=== PATIENT | male | born 2000 | race Hispanic/Latino ===

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

== ENCOUNTER 2021-06-29 13:55 | Emergency (ER) | payer SELFPAY ==
[2021-06-29 15:11] LABS: Absolute Lymphocytes (CBC) 3.7 K/uL (0.7-4.9); Basophils % 1.1 % (0-1.3); Hematocrit 48.6 % (39.6-49.0); Lymphocytes % 33.7 % (15.3-44.8); MPV 8.4 fL (7.6-11.3); RBC Red Blood Cell Count 5.75 M/uL (4.33-5.43)
--- NOTE | 2021-06-29 15:20 | RAD REPORT ---
EXAM DESCRIPTION: Marivel Single View06/29/2021 3:12 pm CLINICAL HISTORY: Chest pain COMPARISON: 2019 FINDINGS: The lungs appear clear of acute infiltrate. The heart is normal size IMPRESSION: No acute abnormalities displayed
[2021-06-29 15:35] LABS: BUN Blood Urea Nitrogen 13 mg/dL (7-18); Bicarbonate 25 mmol/L (21-32); Glucose Level 89 mg/dL (74-106); Sodium Level 137 mmol/L (136-145); Troponin (Emerg Dept Use Only) < 0.02 ng/mL (0.0-0.045)
[2021-06-29 15:36] LABS: Potassium 4.6 mmol/L (3.5-5.1)
--- NOTE | 2021-06-29 16:06 | EDPHYS ---
Physician Documentation [facility] Name: Anthony Alvarado Age: 21 yrs Sex: Male : 2000 Arrival Date: 06/29/2021 Time: 13:55 Bed Waiting Private MD: Azam Cerrato ED Physician Edwardo Hall HPI: 06/29 14:52 This 21 yrs old Male presents to ER via Ambulatory with complaints of Chest kb Pain. 14:52 The patient presents with pain that is acute, with no known mechanism of injury. The kb symptoms are located in the left subscapular area. Onset: The symptoms/episode began/occurred 2 day(s) ago. The pain does not radiate. Associated signs and symptoms: The patient has no apparent associated signs or symptoms. The problem was sustained without known cause. Modifying factors: The patient symptoms are alleviated by nothing, the patient symptoms are aggravated by movement. Severity of symptoms: At their worst the symptoms were moderate, in the emergency department the symptoms are unchanged. The patient has not experienced similar symptoms in the past. The patient has not recently seen a physician. Pt reports "pain where my heart is except in the back.". Historical: - Allergies: 14:31 No Known Allergies; hb - PMHx: 14:29 seizures 4 years ago; hb - Immunization history:: Client reports having NOT received the Covid vaccine. - Social history:: Smoking status: Patient denies any tobacco usage or history of. ROS: 14:51 Constitutional: Negative for fever, chills, and weight loss. kb 14:51 Back: Positive for pain at rest, pain with movement, of the left subscapular area. 14:51 All other systems are negative. Exam: 14:40 Constitutional: This is a well developed, well nourished patient who is awake, alert, kb and in no acute distress. Head/Face: Normocephalic, atraumatic. ENT: Moist Mucous membranes Cardiovascular: Regular rate and rhythm with a normal S1 and S2. No gallops, murmurs, or rubs. No pulse deficits. Respiratory: Respirations even and unlabored. No increased work of breathing, no retractions or nasal flaring. Skin: Warm, dry with normal turgor. Normal color. MS/ Extremity: Pulses equal, no cyanosis. Neurovascular intact. Full, normal range of motion. Neuro: Awake and alert, GCS 15, oriented to person, place, time, and situation. Moves all extremities. Normal gait. Psych: Awake, alert, with orientation to person, place and time. Behavior, mood, and affect are within normal limits. 14:40 ECG was reviewed by the Attending Physician. 14:51 Back: pain, that is mild, that is moderate, of the left subscapular area. kb Vital Signs: 14:29 BP 143 / 106; Pulse 99; Resp 20; Temp 97.3; Pulse Ox 100% on R/A; Weight 117.93 kg; hb Height 5 ft. 9 in. (175.26 cm); Pain 5/10; 14:29 Body Mass Index 38.39 (117.93 kg, 175.26 cm) hb MDM: 14:32 Patient medically screened. kb 14:51 Data reviewed: vital signs, nurses notes. Data interpreted: Pulse oximetry: on room air kb is 100 %. Interpretation: normal. 16:05 Counseling: I had a detailed discussion with the patient and/or guardian regarding: the kb historical points, exam findings, and any diagnostic results supporting the discharge/admit diagnosis, lab results, radiology results, the need for outpatient follow up, a family practitioner, to return to the emergency department if symptoms worsen or persist or if there are any questions or concerns that arise at home. 06/29 14:32 Order name: CBC with Diff hb 06/29 14:32 Order name: Basic Metabolic Panel; Complete Time: 15:40 hb 06/29 14:32 Order name: EKG - Nurse/Tech; Complete Time: 14:41 hb 06/29 14:32 Order name: Troponin (emerg Dept Use Only); Complete Time: 15:40 hb 06/29 14:32 Order name: Chest Single View XRAY; Complete Time: 15:25 hb 06/29 14:33 Order name: CBC with Automated Diff EDMS EC:40 Rate is 90 beats/min. Rhythm is regular. QRS [place] is Normal. HI interval is normal at kb 140 msec. QRS interval is normal at 94 msec. QT interval is normal at 334 msec. Administered Medications: No medications were administered Disposition: 06/30 07:45 Co-signature as Attending Physician, Edwardo Hall MD I agree with the assessment and vivienne plan of care. Disposition Summary: 06/29/21 16:05 Discharge Ordered Location: Home kb Condition: Stable kb Diagnosis - Left Upper back pain kb Followup: kb - With: Emergency Department - When: As needed - Reason: Worsening of condition Followup: kb - With: Private Physician - When: 2 - 3 days - Reason: Recheck today's complaints, Continuance of care, Re-evaluation by your physician Discharge Instructions: - Discharge Summary Sheet kb - Musculoskeletal Pain kb - Chest Wall Pain, [id number] kb Forms: - Medication Reconciliation Form kb - Thank You Letter kb - Antibiotic Education kb - Prescription Opioid Use kb Prescriptions: - Diclofenac Sodium 75 mg Oral tablet,delayed release (DR/EC) - take 1 tablet by ORAL route 2 times per day As needed; 30 tablet; Refills: 0, kb Product Selection Permitted Signatures: Dispatcher [employer] EDAdriana Arrieta, ABIGAIL-C SPRINKLING TRUCK DRIVER-Edwardo Doe MD MD cha Baxter, Heather, RN RN
--- NOTE | 2021-06-29 16:06 | ER ---
Nurse's Notes [facility] Name: Anthony Alvarado Age: 21 yrs Sex: Male : 2000 Arrival Date: 06/29/2021 Time: 13:55 Bed Waiting Private MD: Azam Cerrato Diagnosis: Left Upper back pain Presentation: 06/29 14:29 Chief complaint: Left mid back pain, worse with deep breathing x 2 days. Coronavirus hb screen: At this time, the client does not indicate any symptoms associated with coronavirus-19. Ebola Screen: No symptoms or risks identified at this time. Risk Assessment: Do you want to hurt yourself or someone else? Patient reports no desire to harm self or others. Onset of symptoms was June 28, 2021. 14:29 Method Of Arrival: Ambulatory hb 14:29 Acuity: ANIKA 3 hb Historical: - Allergies: 14:31 No Known Allergies; hb - PMHx: 14:29 seizures 4 years ago; hb - Immunization history:: Client reports having NOT received the Covid vaccine. - Social history:: Smoking status: Patient denies any tobacco usage or history of. Vital Signs: 14:29 BP 143 / 106; Pulse 99; Resp 20; Temp 97.3; Pulse Ox 100% on R/A; Weight 117.93 kg; hb Height 5 ft. 9 in. (175.26 cm); Pain 5/10; 14:29 Body Mass Index 38.39 (117.93 kg, 175.26 cm) hb ED Course: 13:55 Patient arrived in ED. as 13:56 Azam Cerrato is Private Physician. as 14:28 Arm band placed on. hb 14:31 Triage completed. hb 14:32 Adriana Mcdaniels FNP-C is [facility]. kb 14:32 Edwardo Hall MD is Attending Physician. kb 14:41 EKG done, by ED staff, reviewed by Adriana COWART. [facility] 15:13 Chest Single View XRAY In Process Unspecified. EDMS Administered Medications: No medications were administered Outcome: 16:05 Discharge ordered by . kb 16:14 Discharged to home ambulatory. hb 16:14 Condition: stable 16:14 Discharge instructions given to patient, Instructed on discharge instructions, follow up and referral plans. medication usage, Demonstrated understanding of instructions, follow-up care, medications, Prescriptions given X 1. 16:14 Patient left the ED. hb Signatures: Dispatcher [employer] Adriana Mazariegos, ABIGAIL-C ABIGAIL-Valentine Beauchamp Heather, RN RN Leyla Cho 5 Corrections: (The following items were deleted from the chart) 14:31 14:29 BP 143 / 106; Pulse 99bpm; Resp 20bpm; Pulse Ox 100% RA; Temp 97.3F; Pain 5/10; hbhb
[2021-06-29 16:42] LABS: Blood Morphology Comment NOTED (NOT SEEN); Platelet Estimate ADEQ; Poikilocytosis 2+; White Blood Cell Scan OK (OK)
[2021-06-29 16:50] VITALS: BP 143/106; TEMP 97.3; O2SAT 100
--- NOTE | 2021-06-30 16:14 | EKG ---
Test Date: 2021-06-29 Test Time: 14:36:58 Manifest/Order Organizer Print Orders: DARRELL MEASUREMENT RESULTS: Intervals: Rate: 90 WI: 140 QRSD: 94 QT: 334 QTc: 408 [place]: P: 59 WI: 140 QRS: 47 T: 57 INTERPRETIVE STATEMENTS: Normal sinus rhythm Normal ECG Compared to ECG 11/08/2019 23:59:40 No significant changes Electronically Signed On 06-30-21 16:11:53 CDT by Nikhil Singh
== END 2021-06-29 16:14 | disposition home or self-care (01) ==
LOC: ER 13:55
DX: M54.9 Dorsalgia, unspecified (principal)
CPT/HCPCS: 36415; 71045; 80048; 84484; 85025; 93005; 99283